=== PATIENT | female | born 1945 | race Caucasian/White ===

== ENCOUNTER 2022-09-08 11:05 | Emergency (ER) | payer MEDICARE ==
[~2022-09-08] VITALS: Ht 157.5 cm; Wt 60.8 kg
[2022-09-08 11:42] VITALS: O2SAT 97
[2022-09-08 12:06] LABS: *BLOOD, URINE NEGATIVE (NEGATIVE); *CLARITY,URINE CLEAR (CLEAR); *COLOR,URINE YELLOW (YELLOW); *KETONES,URINE NEGATIVE (NEGATIVE); LEUKOCYTE ESTERASE ,URINE NEGATIVE (NEGATIVE); NITRITE, URINE NEGATIVE (NEGATIVE); PH,URINE 5.5 (5.0-8.0); UGLUCOSE NEGATIVE (NEGATIVE)
[2022-09-08] MEDS ORDERED: PRUC1TAB PO (12:19)
[2022-09-08] MEDS ORDERED: LEVO75TA PO (12:19)
[2022-09-08] MEDS ORDERED: LINA290C PO (12:19)
[2022-09-08 12:23] LABS: HEMATOCRIT 33.6 % (31.2-41.9); MEAN CORPUSCULAR HEMOGLOBIN 26.7 uug (24.7-32.8); MEAN CORPUSCULAR VOLUME 82.8 fL (75.5-95.3); PLATELET COUNT (AUTO) 216 K/uL (179-408)
[2022-09-08 12:34] LABS: *BILIRUBIN,URIN 1+ (NEGATIVE)
[2022-09-08 12:39] LABS: ALANINE AMINOTRANSFERASE 496 U/L (14-59); ALKALINE PHOSPHATASE 897 U/L (50-136); ASPARTATE AMINOTRANSFERASE 213 U/L (15-37); BILIRUBIN,DIRECT 5.9 mg/dL (0.0-0.2); BILIRUBIN,TOTAL 6.5 mg/dL (0.2-1.0); CARBON DIOXIDE 25 mmol/L (21-32); CHLORIDE 101 mmol/L (98-107); CREATININE 0.7 mg/dL (0.6-1.3); LIPASE 107 U/L (73-393); POTASSIUM 3.7 mmol/L (3.5-5.1); TOTAL PROTEIN, SERUM 6.8 g/dL (6.4-8.2); UREA NITROGEN, BLOOD 27 mg/dL (7-18)
[2022-09-08 12:54] LABS: BACTERIA,URINE MODERATE /HPF (NONE SEEN); RBC,URINE NONE SEEN /HPF (0-3); SQUAMOUS EPITHELIAL CELL,UR FEW /HPF (NONE SEEN); WBC,URINE 0-3 /HPF (0-3)
[2022-09-08 12:55] LABS: CALCIUM OXALATE CRYSTALS,UR FEW /HPF (NONE SEEN)
[2022-09-08] MEDS ORDERED: ONDANSETRON 4 MG/2 ML VIAL IV PRN (15:45)
[2022-09-08] MEDS ORDERED: ACETAMINOPHEN 325 MG TABLET PO PRN (15:45)
[2022-09-08] MEDS ORDERED: IV D5/ 0.9% NACL 1,000 ML IV PRN (15:45)
[2022-09-08] MEDS ORDERED: REMEDY ESSENTIAL ZINC PASTE 113 GM TP PRN (15:45)
[2022-09-08] MEDS ORDERED: MAGNESIUM HYDROXIDE 30 ML LIQUID UDC PO PRN (15:45)
--- NOTE | 2022-09-08 16:46 | NUR ---
pt will be treansferred to [facility]
--- NOTE | 2022-09-08 16:51 | NUR ---
IV 20g inserted on R AC
--- NOTE | 2022-09-08 17:40 | NUR ---
called [facility] for report [phone] awaiting for answer
--- NOTE | 2022-09-08 17:46 | NUR ---
talked to EDWAR Martins for report
[2022-09-09] MEDS ORDERED: LEVOTHYROXINE SODIUM 75 MCG TABLET PO SCH (07:30)
[2022-09-09 13:06] LABS: HEPATITIS A AB, IgM Negative (Negative)
== END 2022-09-08 17:46 | disposition home or self-care (01) ==
LOC: ER 11:05
DX: K80.50 Calculus of bile duct without cholangitis or cholecystitis without obstruction (principal); R17 Unspecified jaundice; E03.9 Hypothyroidism, unspecified; Z88.1 Allergy status to other antibiotic agents; Z88.8 Allergy status to other drugs, medicaments and biological substances; Z79.899 Other long term (current) drug therapy
CPT/HCPCS: 36415; 76700; 83690; 85025; 85730; 86705; 86706; 86709; 86803; A4663